=== PATIENT | male | born 1950 | race Caucasian/White ===

== ENCOUNTER 2017-02-05 10:15 | Emergency (ER) | payer MEDICARE ==
[2017-02-05 11:37] LABS: BASOPHIL 0.4 % (0-2); EOSINOPHIL 0.4 % (0-7); HCT 35.9 % (42.0-52.0); HGB 11.3 g/dl (13.2-18.0); LYMPHOCYTE 21.4 % (15-48); MCH 26.8 pg (25.0-31.0); MCHC 31.5 g/dL (32.0-36.0); MCV 85.1 fL (78.0-100.0); MONOCYTE 6.9 % (0-12); MPV 10.1 fL (6.0-9.5); NEUTROPHIL 70.9 % (41-80); PLT 387 K/uL (150-400); RBC 4.22 M/uL (4.70-6.00); RDW 14.7 % (11.5-14.0); WBC 11.2 K/uL (4.0-10.5)
[2017-02-05 11:48] LABS: LACTIC ACID 0.8 mmol/L (0.5-2.2)
[2017-02-05 11:49] LABS: ALBUMIN 3.7 g/dL (3.4-4.8); BILIRUBIN - TOTAL 0.3 mg/dL (0.1-1.0); CREATININE 1.1 mg/dL (0.7-1.2); GLOBULIN (CALCULATION) 3.8 g/dL (2.2-4.2); POTASSIUM 4.1 mmol/L (3.5-5.1); TOTAL PROTEIN 7.5 g/dL (6.4-8.3); TROPONIN T 0.059 ng/mL
[2017-02-05 12:14] LABS: BILIRUBIN NEGATIVE (NEGATIVE); BLOOD NEGATIVE Ery/uL (NEGATIVE); CLARITY CLEAR (CLEAR); COLOR YELLOW (YELLOW); GLUCOSE (U) NORMAL (NORMAL); KETONE (U) NEGATIVE (NEGATIVE); LEUKOCYTES 1+ Leu/uL (NEGATIVE); NITRITE NEGATIVE (NEGATIVE); PROTEIN NEGATIVE (NEGATIVE); SPECIFIC GRAVITY <=1.005 (1.001-1.030); UROBILINOGEN 0.2 mg/dL (0.2-1.0)
[2017-02-05 12:28] LABS: BACTERIA TRACE
== END 2017-02-05 14:10 | disposition home or self-care (01) ==
LOC: FER 10:15
PROVIDERS: Emergency Medicine
DX: N39.0 Urinary tract infection, site not specified (principal); R41.82 Altered mental status, unspecified; R05 Cough; R82.90 Unspecified abnormal findings in urine; J44.9 Chronic obstructive pulmonary disease, unspecified; G30.9 Alzheimer's disease, unspecified; F02.80 Dementia in other diseases classified elsewhere, unspecified severity, without behavioral disturbance, psychotic disturbance, mood disturbance, and anxiety; Z87.891 Personal history of nicotine dependence; W19.XXXA Unspecified fall, initial encounter; Y93.01 Activity, walking, marching and hiking
CPT/HCPCS: 36415; 70450; 71010; 80053; 81001; 83605; 83880; 84484; 85025; 87040; 87088; 87804; 87899; 93005; 94640; 94664

== ENCOUNTER 2017-04-22 14:13 | Emergency (ER) | payer MEDICARE | END 2017-04-22 16:06 | disposition home or self-care (01) | LOC: FER 14:13 | DX: H33.22 Serous retinal detachment, left eye (principal); H11.32 Conjunctival hemorrhage, left eye; I51.9 Heart disease, unspecified; J44.9 Chronic obstructive pulmonary disease, unspecified; F17.200 Nicotine dependence, unspecified, uncomplicated; Z79.899 Other long term (current) drug therapy | CPT/HCPCS: 99284 ==

== ENCOUNTER 2021-01-21 15:20 | Inpatient (IN) | payer MEDICARE ==
[~2021-01-21 15:20] MED LIST: 8 HOUR650 MG PO; CIPRO500 MG PO; DICLOFENAC SOD100 G1 TOP; DUONEB 2.5-0.5M1 AMP INH; HYDROCODON-ACE1 EAC4 PO; LOPRESSOR25 MG PO; OMEPRAZOLE20 MG PO; PROSCAR5 MG PO; PULMICORT0.5 MG/2 M NEB; REMERON15 MG PO; TAMSULOSIN HCL0.4 MG PO; VENTOLIN HFA IN18 GM INH; VIBRAMYCIN100 MG PO; ZOCOR10 M1 PO; ZYPREXA 5MG TABL5 MG PO
[2021-01-21 17:43] LABS: BASOPHIL 0.5 % (0-2); EOSINOPHIL 1.4 % (0-7); HCT 38.6 % (42.0-52.0); HGB 11.5 g/dl (13.2-18.0); LYMPHOCYTE 22.1 % (15-48); MCH 27.3 pg (25.0-31.0); MCHC 29.8 g/dL (32.0-36.0); MCV 91.5 fL (78.0-100.0); MONOCYTE 6.9 % (0-12); MPV 11.5 fL (6.0-9.5); NEUTROPHIL 68.7 % (41-80); NRBC 0; PLT 281 K/uL (150-400); RBC 4.22 M/uL (4.70-6.00); RDW 15.2 % (11.5-14.0); WBC 9.1 K/uL (4.0-10.5)
[2021-01-21 17:59] LABS: ALBUMIN 2.9 g/dL (3.4-5.0); BILIRUBIN - TOTAL 0.2 mg/dL (0.2-1.0); BUN/CREAT RATIO (CALC) 19.6 RATIO; CREATININE 1.53 mg/dL (0.67-1.17); POTASSIUM 4.1 mmol/L (3.5-5.1); TOTAL PROTEIN 7.9 g/dL (6.4-8.2)
[2021-01-22 00:25] LABS: C-REACTIVE PROTEIN 3.3 mg/dL (<=0.90); URIC ACID 9.5 mg/dL (3.5-7.2)
[2021-01-22 06:52] LABS: BASOPHIL 0.4 % (0-2); EOSINOPHIL 0.8 % (0-7); HCT 36.6 % (42.0-52.0); HGB 10.9 g/dl (13.2-18.0); LYMPHOCYTE 10.5 % (15-48); MCH 27.4 pg (25.0-31.0); MCHC 29.8 g/dL (32.0-36.0); MONOCYTE 2.4 % (0-12); NEUTROPHIL 85.5 % (41-80); NRBC 0; PLT 266 K/uL (150-400); RBC 3.98 M/uL (4.70-6.00); WBC 7.1 K/uL (4.0-10.5)
[2021-01-22 06:58] LABS: BUN/CREAT RATIO (CALC) 19.4 RATIO; C-REACTIVE PROTEIN 2.5 mg/dL (<=0.90); CREATININE 1.44 mg/dL (0.67-1.17); POTASSIUM 4.2 mmol/L (3.5-5.1)
[2021-01-22] MEDS ORDERED: OMEPRAZOLE 20MG20 MG PO (07:57)
[2021-01-22] MEDS ORDERED: LOPRESSOR25 MG PO ×2 (07:57→07:58)
[2021-01-22] MEDS ORDERED: FLOMAX0.4 MG PO (07:58)
[2021-01-22] MEDS ORDERED: ZOCOR10 MG PO (07:59)
[2021-01-22] MEDS ORDERED: MIRTAZAPINE30 MG PO (08:00)
[2021-01-22] MEDS ORDERED: ZYPREXA 5MG TABL5 MG PO (08:01)
[2021-01-22] MEDS ORDERED: PROSCAR5 MG PO (08:02)
[2021-01-22] MEDS ORDERED: PROAIR DIGIHAL90 MCG INH (08:04)
[2021-01-22] MEDS ORDERED: SPIRIVA RESPIMAT4 G1 INH (08:05)
[2021-01-22] MEDS ORDERED: ALBUTEROL INH (08:07)
--- NOTE | 2021-01-22 10:53 | NUR ---
PT C/O FREQUENCY AND HESTITANCY. UNABLE TO VOID. BLADDER SCAN SHOWED >501, MD NOTIFIED. STRAIGHT CATH ORDERED AND COMPLETED. 800CC OF YELLOW URINE EMPTIED
--- NOTE | 2021-01-22 18:00 | NUR ---
01/22/21 Mr. Damico lives with friend's Robb and Livia Arias. Ms. Arias reported the following: Mr. Damico's son, Asif Damico, is his son. Mr. Damico is followed at the [facility] for treatment of bipolar disease. He has a wc, hospital bed and 3in1. - Ms. Arias was educated to [facility] and Aid and Attendance programs through the [place]. - Dr. Quezada anticipated discharge for 01/23, no needs are anticipated.
[2021-01-23] MEDS ORDERED: KEFLEX250 MG PO (10:55)
[2021-01-23] MEDS ORDERED: COLCRYS0.6 MG PO (10:55)
[2021-01-23] MEDS ORDERED: PREDNISONE 20MG20 MG PO (10:55)
--- NOTE | 2021-01-23 11:25 | NUR ---
1123 PATIENT AND CAREGIVER SANTINO KUHN GIVEN D/C INSTRUCTIONS. IV REMOVED, CATHETER INTACT
== END 2021-01-23 11:35 | disposition home or self-care (01) | DRG 603 ==
LOC: FER 15:20 → FMS 20:05
PROVIDERS: Nurse Practitioner; Physician Assistant; ADMIT Internal Medicine
DX: L03.113 Cellulitis of right upper limb (principal); E87.0 Hyperosmolality and hypernatremia; M10.9 Gout, unspecified; F31.9 Bipolar disorder, unspecified; J44.9 Chronic obstructive pulmonary disease, unspecified; F03.90 Unspecified dementia, unspecified severity, without behavioral disturbance, psychotic disturbance, mood disturbance, and anxiety; I12.9 Hypertensive chronic kidney disease with stage 1 through stage 4 chronic kidney disease, or unspecified chronic kidney disease; F17.210 Nicotine dependence, cigarettes, uncomplicated; Z20.822 Contact with and (suspected) exposure to COVID-19; N40.0 Benign prostatic hyperplasia without lower urinary tract symptoms; N18.2 Chronic kidney disease, stage 2 (mild); Z90.49 Acquired absence of other specified parts of digestive tract; Z98.890 Other specified postprocedural states
CPT/HCPCS: 36415; 73130; 80048; 80053; 84550; 85025; 86140; 94640; J0696; J1650; J2930; J7060; J7512; U0002